=== PATIENT | male | born 1995 | race Caucasian/White ===

== ENCOUNTER 2018-10-01 11:27 | Emergency (ER) | payer OTHER, SELFPAY ==
[2018-10-01 12:03] VITALS: BP 129/64; PULSE 54; RESP 16; TEMP 36.7; O2SAT 99; BMI 26.2
--- NOTE | 2018-10-01 12:05 | DI.RAD.S_ITS ---
PROCEDURE: XR KNEE RT 3V INDICATIONS: pain, injury TECHNIQUE: 3 views of the knee were acquired. COMPARISON: None. FINDINGS: Bones: No fractures or dislocations. No suspicious bony lesions. Soft tissues: Small suprapatellar joint effusion. No suspicious soft tissue calcifications. IMPRESSION: Small suprapatellar joint effusion seen on the lateral view, no fracture or subluxation found. Dictated by: Saud Whitney M.D. on 10/01/2018 at 12:43 Approved by: Saud Whitney M.D. on 10/01/2018 at 12:44
[2018-10-01 14:18] VITALS: BP 134/73; PULSE 48; RESP 16; O2SAT 100
--- NOTE | 2018-10-01 15:27 | ED.LOWEXIN ---
HPI - Extremity Injury (Lower) <ALICIA Beltran - Last Filed: 10/01/18 22:15> General Chief Complaint: Extremity Injury, Lower Stated Complaint: R KNEE PAIN Time Seen by Provider: 10/01/18 14:47 Source: patient Mode of arrival: ambulatory Limitations: no limitations History of Present Illness HPI Narrative: 23-year-old healthy male that use electronic cigarettes here for complaint of pain to his right knee over the past 2-3 days. He states that he was working out and lifting weights when he accidentally hit his knee on the ground while he was doing lunges. He states he felt a twinge in his right knee as he continued to work out. He reports that the next day his knee was very painful and made it difficult for him to ambulate. He is ambulating now by heel walking and not bending his knee. He denies any other trauma to the knee. Reports increased pain with motion of the right knee and weight-bearing. He denies any other injuries or concerns at this timeframe. Related Data Allergies Allergy/AdvReac Type Severity Reaction Status Date / Time No Known Drug Allergies Allergy Verified 10/01/18 12:03 Review of Systems <ALICIA Beltran - Last Filed: 10/01/18 22:15> Constitutional Denies chills, Denies fever(s), Denies lethargy and Denies weakness Eyes Denies change in vision, Denies eye discharge, Denies irritation and Denies loss of vision ENT Ears, Nose, Mouth, and Throat: Denies change in voice, Denies neck pain and Denies sore throat Cardiovascular Denies chest pain, Denies irregular heart rhythm, Denies lightheadedness, Denies palpitations, Denies dyspnea, Denies dyspnea on exertion and Denies orthopnea Respiratory Denies cough, Denies dyspnea, Denies dyspnea on exertion and Denies wheezing Gastrointestinal Gastrointestinal: Denies abdominal pain, Denies change in bowel habits, Denies diarrhea, Denies nausea and Denies vomiting Genitourinary Denies hematuria, Denies flank pain, Denies urinary incontinence and Denies urinary urgency Musculoskeletal Denies neck pain Comments: Right knee pain Neurologic Denies confusion, Denies loss of vision and Denies weakness Psychiatric Denies anxiety, Denies confusion, Denies depression, Denies homicidal ideation and Denies suicidal ideation Endocrine Denies palpitations Allergic/Immunologic Denies wheezing PFSH <ALICIA Beltran - Last Filed: 10/01/18 22:15> Social History Smoking Status: Current every day smoker Social History Smoking Status: Current every day smoker Exam <ALICIA Beltran - Last Filed: 10/01/18 22:15> Initial Vital Signs Initial Vital Signs: Vital Signs Temperature 98.0 F 10/01/18 12:03 Pulse Rate 54 L 10/01/18 12:03 Respiratory Rate 16 10/01/18 12:03 Blood Pressure 129/64 10/01/18 12:03 Pulse Oximetry 99 10/01/18 12:03 Const General: cooperative and well developed Nutritional Appearance: well nourished Orientation: alert, awake, oriented x3 and not confused HENMT Mouth: oral mucosae normal and moist mucous membranes Eyes Conjunctivae: conjunctivae normal Sclera: sclerae normal Pupils: PERRL EOM: EOM intact bilaterally Cardio Rate: regular rate Rhythm: regular rhythm Heart Sounds: no click, no gallops, no murmurs and no rubs Pulses: normal peripheral pulses Skin General: no rashes or lesions noted, No jaundice and No petechiae Neuro General: alert, oriented x3, gait normal and no focal motor deficits Speech: speech normal Extrem Other: Right knee with no signs of trauma. No significant swelling. No ecchymoses. No deformities. Distal sensation is intact. Distal range of motion is intact. Distal pulses are intact. Negative anterior-posterior drawer sign. Negative varus and valgus stress test. <Lb Padilla MD - Last Filed: 10/03/18 02:42> Initial Vital Signs Initial Vital Signs: Vital Signs Temperature 98.0 F 10/01/18 12:03 Pulse Rate 54 L 10/01/18 12:03 Respiratory Rate 16 10/01/18 12:03 Blood Pressure 129/64 10/01/18 12:03 Pulse Oximetry 99 10/01/18 12:03 Course <ALICIA Beltran - Last Filed: 10/01/18 22:15> Orders Ordered: ED Orders 10/01/18 12:05 XR knee RT 3V Stat Vital Signs - 8 hr 10/01/18 14:18 10/01/18 15:37 Pulse Rate 48 L 57 L Respiratory Rate 16 16 Blood Pressure [Left Arm] 134/73 132/83 Pulse Oximetry 100 100 <Lb Padilla MD - Last Filed: 10/03/18 02:42> Orders Ordered: ED Orders 10/01/18 12:05 XR knee RT 3V Stat Vital Signs - 8 hr 10/01/18 14:18 10/01/18 15:37 Pulse Rate 48 L 57 L Respiratory Rate 16 16 Blood Pressure [Left Arm] 134/73 132/83 Pulse Oximetry 100 100 MDM - Extremity Injury (Lower) <ALICIA Beltran - Last Filed: 10/01/18 22:15> [facility] Narrative Medical decision making narrative: X-ray the right knee was obtained and was negative for any acute fractures or dislocation. Will treat as a knee sprain/contusion at this time he is placed in a knee immobilizer for comfort and support along with crutches for nonweightbearing. Wyon-[id number]-jykprcz ibuprofen as needed for any discomfort. Ice and elevation help with any swelling. Follow up with primary care provider next week. If continued symptoms may need to have MRI for further evaluation. Discharge Plan Departure Patient Disposition: Home Clinical Impression: Right knee sprain Qualifiers: Encounter type: initial encounter Involved ligament of knee: unspecified ligament Qualified Code(s): S83.91XA - Sprain of unspecified site of right knee, initial encounter Discharge Date/Time: 10/01/18 15:59 Interventions: ED Discharge Assessment Last Done: 10/01/18 15:59 Instructions: DI for Knee Sprain Activity Restrictions/Additional Instructions: X-ray the right knee was obtained was negative for any fractures or dislocations. Signs and symptoms presents as a sprain/contusion into the right knee. Year placed in a knee immobilizer for comfort and support use as directed. Crutches for nonweightbearing also use as directed. Use until can bear weight without discomfort. Follow up with her primary care provider. If symptoms do not resolve recommend follow up with primary care provider medial to have MRI for further evaluation. For any worsening symptoms return to the emergency room. Referrals: [facility] [Provider Group] <Lb Padilla MD - Last Filed: 10/03/18 02:42> Cosign ED Attending Cosignature Attestation: I was present in the ER at the time this patient's care. I was available for verbal consultation or to see the patient directly if requested. I agree with the assessment and management plan.
[2018-10-01 15:37] VITALS: BP 132/83; PULSE 57; RESP 16; O2SAT 100
== END 2018-10-01 15:59 | disposition home or self-care (01) ==
PROVIDERS: Emergency Provider Nurse Practitioner Family
DX: S83.91XA Sprain of unspecified site of right knee, initial encounter (principal); Y93.79 Activity, other specified sports and athletics; Y92.9 Unspecified place or not applicable; Y99.9 Unspecified external cause status
CPT/HCPCS: 73562; 99283

== ENCOUNTER 2021-02-25 05:52 | Emergency (ER) | payer OTHER, SELFPAY ==
[2021-02-25 06:25] VITALS: BP 149/67; PULSE 55; RESP 16; TEMP 36.8; O2SAT 99; BMI 28.0
--- NOTE | 2021-02-25 07:13 | ED_ITS ---
HPI - Headache General Chief Complaint: Headache Stated Complaint: severe headaches/dizziness for 1 month Time Seen by Provider: 02/25/21 07:03 Mode of arrival: Ambulatory Limitations: no limitations History of Present Illness HPI Narrative: 25-year-old male smoker with noncontributory medical history presents with a chief complaint of vague description of headache for the past month or 2. He states he has been rather gradual in its onset and there more days than not. He states that there is no specific location of this headache and sometimes it is on 1 side, the next day it may be on the other, sometimes it is frontal and sometimes occipital. He denies any fever chills nor neck pain. He denies other neurologic symptoms such as blurred vision, trouble speech or unilateral numbness, tingling or weakness. He has no use of blood thinners. He has had no fever chills. He denies runny nose, sore throat or cough. He denies any obvious provocation or palliation. He denies nausea, vomiting or diarrhea. He has no medication or dietary change. Related Data Allergies Allergy/AdvReac Type Severity Reaction Status Date / Time No Known Drug Allergies Allergy Verified 10/01/18 12:03 Review of Systems Review of Systems Narrative: GENERAL: See HPI HEENT: See HPI. RESPIRATORY: Denies dyspnea, cough, wheezing, hemoptysis, sputum. CARDIOVASCULAR: Denies chest pain, palpitations, orthopnea, edema, GASTROINTESTINAL: Denies nausea, vomiting, abdominal pain, diarrhea, constipation, melena. : Denies dysuria, frequency, incontinence, hematuria, urinary retention. MUSCULOSKELETAL: denies weakness, joint pain, or bony pain SKIN: Denies rash, skin lesions, or other NEUROLOGIC: See HPI PSYCHIATRIC: No concerning psychosocial issues. 12 point review of systems is negative except for those stated above Patient History Social History Smoking Status: Current every day smoker Smoking Status: Current every day smoker alcohol intake frequency: a few times a week Substance Use Type: does not use Exam Narrative Exam Narrative: GENERAL: [25] year old patient appears stated age. Well- developed patient, in mild distress. HEAD: Atraumatic. Normocephalic. EYES: Pupils equal round and reactive. Extraocular motions intact. No scleral icterus. No injection or drainage. ENT: Nose without bleeding, purulent drainage. Throat without erythema, tonsil lar hypertrophy or exudate. Airway patent. NECK: Trachea midline. Non tender CARDIOVASCULAR: Regular rate and rhythm without murmurs, gallops, or rubs. RESPIRATORY: Clear to auscultation. Breath sounds equal bilaterally. No wheezes, rales, or rhonchi. GASTROINTESTINAL: Abdomen soft, non-tender, nondistended. EXTREMITIES: No edema or joint tenderness. BACK: Nontender without deformity or crepitance. No flank tenderness. NEURO: AOx3. SKIN: No rash or erythema of visible areas NIH Stroke Scale 1a. LOC: Patient is alert and keenly responsive (0) 1b. LOC Questions: Patient answers both LOC questions accurately (0) 1c. LOC Commands: Patient performs both tasks correctly (0) 2. Best Gaze: Normal (0) 3. Visual: No visual loss (0) 4. Facial palsy: Normal symmetrical movements (0) 5. Motor arm: No drift (0) 6. Motor leg: No drift (0) 7. Limb ataxia: Absent (0) 8. Sensory: Normal (0) 9. Best language: No aphasia; normal (0) 10. Dysarthria: Normal (0) 11. Extinction and inattention: No abnormality (0) NIHSS: 0 Initial Vital Signs Initial Vital Signs: Vital Signs Temperature 98.3 F 02/25/21 06:25 Pulse Rate 55 L 02/25/21 06:25 Respiratory Rate 16 02/25/21 06:25 Blood Pressure 149/67 H 02/25/21 06:25 Pulse Oximetry 99 02/25/21 06:25 Course Orders Ordered: ED Orders 02/25/21 07:15 CT head/brain wo con Stat 02/25/21 08:45 COVID19 -Nasal swab/Pre-Proc Stat Complete Blood Count AUTO DIFF Stat Comprehensive Metabolic Panel Stat Discontinued Medications Dexamethasone (Dexamethasone 10 Mg/Ml Vial) 10 mg IV NOW ONE Stop: 02/25/21 07:15 Last Admin: 02/25/21 08:59 Dose: 10 mg Documented by: TASHA Diphenhydramine HCl (Diphenhydramine 50 Mg/Ml Vial) 25 mg IV NOW ONE Stop: 02/25/21 07:15 Last Admin: 02/25/21 08:59 Dose: 25 mg Documented by: TASHA Sodium Chloride (Normal Saline 0.9%) 1,000 mls @ 1,000 mls/hr IV BOLUS ONE Stop: 02/25/21 08:13 Last Admin: 02/25/21 08:59 Dose: 1,000 mls/hr Documented by: TASHA Metoclopramide HCl (Metoclopramide 10 Mg/2 Ml Inj) 10 mg IV NOW ONE Stop: 02/25/21 07:15 Last Admin: 02/25/21 08:59 Dose: 10 mg Documented by: TASHA Vital Signs Vital signs: Vital Signs - 8 hr 02/25/21 06:25 02/25/21 09:47 Temperature 98.3 F 98.0 F Pulse Rate 55 L 62 Respiratory Rate 16 14 Blood Pressure 149/67 H 118/69 Pulse Oximetry 99 100 MDM - Headache Lab Data Result diagrams: 02/25/21 08:45 02/25/21 08:45 Labs: Lab Results 02/25/21 02/25/21 02/25/21 Range/Units 08:45 08:45 08:45 WBC 7.1 (4.5-11.0) X10^3/uL RBC 4.87 (4.5-5.9) X10^6/uL Hgb 14.7 (13.5-17.5) g/dL Hct 44.4 (41-53) % MCV 91.2 (80-100) fL MCH 30.2 (26-34) PG MCHC 33.1 (30-36) % RDW 12.5 (11.6-14.8) % Plt Count 268 (150-400) X10^3/uL Neut % (Auto) 53.8 (50-75) % Lymph % (Auto) 36.0 (25-40) % [place] % (Auto) 8.2 (3-14) % Eos % (Auto) 1.5 L (2-4) % Baso % (Auto) 0.5 (0-2) % Neut # (Auto) 3800 (8258-9401) /uL Lymph # (Auto) 2600 (9339-6430) /uL [place] # (Auto) 600 (0-900) /uL Eos # (Auto) 100 (0-450) /uL Baso # (Auto) 0 (0-100) /uL Sodium 139 (137-145) mmol/L Potassium 3.9 (3.4-5.1) mmol/L Chloride 105 (98-107) mmol/L Carbon Dioxide 27 (22-32) mmol/L BUN 16 (9-20) mg/dL Creatinine 1.09 (0.66-1.25) mg/dL Estimated GFR > 60.0 (>60) mL/min BUN/Creatinine Ratio 14.7 (6-22) Glucose 98 (70-100) mg/dL Calcium 9.5 (8.4-10.2) mg/dL Total Bilirubin 1.1 (0.2-1.3) mg/dL AST 21 (17-59) IU/L ALT 12 (<50) IU/L Alkaline Phosphatase 53 (38-126) U/L Total Protein 6.9 (6.3-8.2) g/dL Albumin 4.4 (3.5-5.0) g/dL Globulin 2.5 (1.7-4.1) g/dL Albumin/Globulin Ratio 1.8 (1.0-2.8) SARS-CoV-2 (PCR) Negative (Negative) Point of Care Testing Glucose POC 81 MDM Narrative Medical decision making narrative: Headache considerations include, but not limited to: Subarachnoid hemorrhage, but unlikely as patient denies sudden onset of pain, not worst of life, or neck pain Meningitis considered, but thought unlikely given lack of Brudzinski's, Kernig's sign, altered mental status or fever Giant cell arteritis considered, but thought unlikely given lack of unilateral findings, pain in cheondoism, vision change HTN Emergency considered, but thought unlikely given normal vitals Other serious diagnoses considered unlikely given lack of red flag findings such as sudden onset, increasing frequency, immunocompromise, systemic signs (fever, chills, stiff neck, or rash), focal neurologic findings, trauma, blood thinners, etc. Patient has significant improvement after above-stated therapies. Discharge Plan Departure Patient Disposition: Home Clinical Impression: Headache Qualifiers: Headache type: unspecified Headache chronicity pattern: unspecified pattern Intractability: not intractable Qualified Code(s): R51.9 - Headache, unspecified Instructions: DI for Headache Activity Restrictions/Additional Instructions: *You have been diagnosed with [ Headache ] *What to do: *Take medications as directed *Follow up with your primary care provider in 2-3 days, call for an appointment. Let them know you were seen in the Emergency Department and that we ask that you be seen in follow up *Return to ER if you should have any new, worsening or concerning symptoms, such as [ fever > 101F, neck pain or stiffness, vomiting, confusion, seizure, focal weakness, vision change, speech deficit or other concerning symptoms ]
--- NOTE | 2021-02-25 07:15 | DI.CT.S_ITS ---
PROCEDURE: CT HEAD/BRAIN WO CON INDICATIONS: severe headache TECHNIQUE: Noncontrast 4.5 mm thick angled axial sections acquired from the foramen magnum to the vertex, with coronal and sagittal reformats. For radiation dose reduction, the following was used: automated exposure control, adjustment of mA and/or kV according to patient size. COMPARISON: None. FINDINGS: Image quality: Excellent. CSF spaces: Basal cisterns are patent. No extra-axial fluid collections. Ventricles are normal in size and shape. Brain: No midline shift. No intracranial masses or hemorrhage. Resendez-white matter interface is normal. Skull and face: Calvarium and visualized facial bones are intact, without suspicious lesions. Sinuses: Visualized sinuses and mastoids are clear. IMPRESSION: Unremarkable head CT. No evidence acute stroke, hemorrhage, or mass. Dictated by: Kurtis Alegria M.D. on 02/25/2021 at 8:40 Approved by: Kurtis Alegria M.D. on 02/25/2021 at 8:40
[2021-02-25] MEDS: diphenhydrAMINE 50 MG/ML VIAL 25 MG IV (08:59)
[2021-02-25] MEDS: SODIUM CHLORIDE 0.9% 1,000 ML 1000 ML IV (08:59)
[2021-02-25] MEDS: METOCLOPRAMIDE 10 MG/2 ML INJ IV (08:59)
[2021-02-25] MEDS: DEXAMETHASONE 10 MG/ML VIAL IV (08:59)
[2021-02-25 09:05] LABS: Add Manual Diff / Slide Review NO; Basophils Absolute Auto 0 /uL (0-100); Basophils Percent Auto 0.5 % (0-2); Eosinophils Absolute Auto 100 /uL (0-450); Eosinophils Percent Auto 1.5 % (2-4); Hematocrit 44.4 % (41-53); Hemoglobin 14.7 g/dL (13.5-17.5); Lymphocytes Absolute Auto 2600 /uL (1100-4500); Mean Corpuscular HGB Conc 33.1 % (30-36); Mean Corpuscular Hemoglobin 30.2 PG (26-34); Mean Corpuscular Volume 91.2 fL (80-100); Monocytes Absolute Auto 600 /uL (0-900); Monocytes Percent Auto 8.2 % (3-14); Neutrophils Absolute Auto 3800 /uL (1500-7000); Neutrophils Percent Auto 53.8 % (50-75); Platelet Count 268 X10^3/uL (150-400); Red Blood Cell Count 4.87 X10^6/uL (4.5-5.9); Red Cell Distribution Width 12.5 % (11.6-14.8); White Blood Cell Count 7.1 X10^3/uL (4.5-11.0)
[2021-02-25 09:22] LABS: Alanine Aminotransferase 12 IU/L (<50); Albumin 4.4 g/dL (3.5-5.0); Albumin Globulin Ratio 1.8 (1.0-2.8); Alkaline Phosphatase 53 U/L (38-126); Aspartate Aminotransferase 21 IU/L (17-59); BUN Creatinine Ratio 14.7 (6-22); Bilirubin Total 1.1 mg/dL (0.2-1.3); Blood Urea Nitrogen 16 mg/dL (9-20); Calcium 9.5 mg/dL (8.4-10.2); Carbon Dioxide 27 mmol/L (22-32); Chloride 105 mmol/L (98-107); Estimated Glomerular Filt Rate > 60.0 mL/min (>60); Globulin 2.5 g/dL (1.7-4.1); Glucose 98 mg/dL (70-100); HEMOLYSIS < 15 (0-50); Potassium 3.9 mmol/L (3.4-5.1); Sodium 139 mmol/L (137-145); Total Protein 6.9 g/dL (6.3-8.2)
[2021-02-25 09:47] VITALS: BP 118/69; PULSE 62; RESP 14; TEMP 36.7; O2SAT 100
[2021-02-25 09:55] LABS: COVID19 -Nasal RAPID Negative (Negative)
[2021-02-25 10:14] VITALS: BP 118/66; PULSE 54; O2SAT 99
== END 2021-02-25 10:15 | disposition home or self-care (01) ==
PROVIDERS: Emergency Provider Emergency Medicine
DX: R51.9 Headache, unspecified (principal); Z20.822 Contact with and (suspected) exposure to COVID-19
CPT/HCPCS: 36415; 70450; 80053; 82962; 85025; 87635; 96361; 96374; 96375; 99284; C9803; J1100; J1200; J2765